=== PATIENT | female | born 1960 | race Caucasian/White ===

== ENCOUNTER 2022-09-11 08:41 | Outpatient (CLI) | payer OTHER, SELFPAY ==
--- NOTE | ~2022-09-11 | MM_ITS ---
EXAMINATION: MM screening radha BI w rosey HISTORY: Screening TECHNIQUE: Craniocaudal and mediolateral oblique 3-D tomosynthesis images were obtained and synthetic 2-D images were generated. CAD analysis was submitted and interpreted. COMPARISON: Comparison to multiple prior studies sequentially, with oldest reviewed study dated 08/24. BREAST PARENCHYMAL COMPOSITION: The breasts are heterogeneously dense, which may obscure small masses . FINDINGS: There is no evidence of suspicious mass, calcification, or architectural distortion to sugg est malignancy in either breast. There has been no suspicious interval change. IMPRESSION: 1. No mammographic evidence of malignancy. 2. Recommend routine screening mammography in one year. BI-RADS Category 1: Negative Reviewed, dictated and finalized at location A. 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
== END 2022-09-11 08:42 | disposition home or self-care (01) ==
PROVIDERS: PCP Internal Medicine; Visit Provider Nurse Practitioner
DX: Z12.31 Encounter for screening mammogram for malignant neoplasm of breast (principal)
CPT/HCPCS: 77063; 77067

== ENCOUNTER 2023-09-29 07:50 | Inpatient (IN) | payer OTHER, SELFPAY ==
[2023-09-29] VITALS (11 sets, daily range): BP systolic 94–135; BP diastolic 58–85; PULSE 93–116; RESP 16–24; TEMP 36.2–36.8; O2SAT 95–100
--- NOTE | ~2023-09-29 | XR_ITS ---
EXAMINATION: XR chest 2V DATE: 09/29/2023 08:38 INDICATION: Right-sided chest pain. Cough. TECHNIQUE: Frontal and lateral views of the chest were obtained. COMPARISON: Chest 2 views 07/06/2010 FINDINGS: A calcified left lung nodule and calcified left hilar and mediastinal lymph nodes are consi stent with old granulomatous disease. There are airspace opacities in right mid and upper lung zones. There are mild airspace opacities in the lower lung zones. There is a small right pleural effusion. No pneumothorax. The heart size is normal. There are surgical clips in the abdomen. IMPRESSION: 1. Airspace opacities in right lung and left lower lung zone, consistent with pneumonia. 2. Small right pleural effusion. Reviewed, dictated and finalized at location A. K PITCHER IMPRESSION: 1. Airspace opacities in right lung and left lower lung zone, consistent with p neumonia. 2. Small right pleural effusion.
--- NOTE | 2023-09-29 07:51 | ECG_ITS ---
Measurements Intervals [place] Rate: 110 P: 41 WV: 149 QRS: 6 QRSD: 97 T: 64 QT: 327 QTc: 444 Interpretive Statements SINUS TACHYCARDIA VOLTAGE CRITERIA FOR LVH ABNORMAL ECG NO PREVIOUS ECG AVAILABLE FOR COMPARISON Electronically Signed On 09-29-2023 8:25:00 VALUE ANALYSIS COORDINATOR by Jeronimo Lewis D.O.
[2023-09-29 09:01] LABS: Basophils Absolute Auto 0.2 K/mm3 (0.0-0.1); Basophils Percent Auto 1.3 % (0.2-1.2); Eosinophils Absolute Auto 0.2 K/mm3 (0-0.3); Eosinophils Percent Auto 1.3 % (0-4.4); Hematocrit 42.2 % (37.0-47.0); Hemoglobin 13.5 g/dL (12.0-15.0); Immature Granulocyte Absolute 0.56 K/mm3 (0.00-0.031); Immature Granulocyte Percent A 4.9 % (0-0.5); Lymphocytes Absolute Auto 1.97 K/mm3 (0.9-3.2); Lymphocytes Percent Auto 17.3 % (18.3-44.2); Mean Corpuscular Hemoglobin 27.3 pg (26-34); Mean Corpuscular Volume 85.3 fl (80-100); Mean Platelet Volume 9.8 fl (7.4-10.4); Monocytes Absolute Auto 0.8 K/mm3 (0.1-0.6); Monocytes Percent Auto 7.4 % (2.6-8.5); Neutrophils Absolute Auto 7.7 K/mm3 (1.3-6.7); Neutrophils Percent Auto 67.8 % (45.5-73.1); Platelet Count Result 415 k/mm3 (150-375); Red Blood Count 4.95 M/mm3 (4.2-5.4); Red Cell Distribution Width 14.1 % (11.5-14.5); White Blood Count 11.4 K/mm3 (4.5-10.0)
[2023-09-29 09:14] LABS: Prothrombin Time 13.1 Seconds (11.1-14.7)
[2023-09-29 09:15] LABS: Partial Thromboplastin Time 31.7 SECONDS (22.3-36.8)
[2023-09-29 09:16] LABS: Alanine Aminotransferase 36 U/L (6-35); Albumin Level 4.3 g/dL (3.5-5.1); Alkaline Phosphatase 140 U/L (38-126); Anion Gap 13 mmol/L (8-16); Aspartate Amino Transferase 43 U/L (14-36); Bilirubin,Total 0.9 mg/dL (0.2-1.3); Blood Urea Nitrogen 22 mg/dL (7-17); Calcium 11.1 mg/dL (8.4-10.2); Carbon Dioxide 26 mmol/L (22-30); Chloride 93 mmol/L (98-107); Estimated CRCL calculation 50 ml/min; Estimated Glomerular Filt Rate > 60; Glucose 107 mg/dL (65-110); Lipase 141 U/L (23-300); Potassium 4.3 mmol/L (3.4-5.0); Sodium 132 mmol/L (137-145)
[2023-09-29 09:23] LABS: Influenza A QL RT-PCR Negative (Negative); Influenza B QL RT-PCR Negative (Negative); RSV RNA, RT-PCR Negative (Negative); SARS-CoV-2 RNA PCR Negative (Negative)
[2023-09-29 09:32] LABS: Troponin I < 0.012 ng/mL (0.000-0.034)
--- NOTE | 2023-09-29 09:54 | ED.GENADULT ---
HPI - General Adult General Chief complaint: Chest Pain <Elif Mancilla GHOST WRITER - Last Filed: 09/29/23 09:58> Stated complaint: R side chest pain <Elif Mancilla GHOST WRITER - Last Filed: 09/29/23 09:58> Time Seen by Provider: 09/29/23 14:54 <Elif Mancilla GHOST WRITER - Last Filed: 09/29/23 09:58> History of Present Illness HPI narrative: Kim Rosen is a 63 y/o female who presents with reports of having a productive cough for about 1 week with right sided chest pain. She states that she was on antibiotics for 3-4 days but states it didn't make her feel any better. <Elif Mancilla GHOST WRITER - Last Filed: 09/29/23 09:58> Kim Rosen is a 63 y/o female who presents with reports of having a productive cough for about 1 week with right sided chest pain. She states that she was on antibiotics for 3 days but states it didn't make her feel any better And she discontinue the antibiotics. No loss consciousness. Has tightness on the right side. No radiation. No runny nose or sore throat. <Quique Bang MD - Last Filed: 09/29/23 18:49> Related Data Home medications: Home Medications Medication Instructions Recorded Confirmed calcium carbonate 500 mg calcium 500 mg PO DAILY 11/26/19 07/03/22 (1,250 mg) tablet (Calcium 500) cholecalciferol (vitamin D3) 25 1,000 unit PO DAILY 11/26/19 07/03/22 mcg (1,000 unit) capsule <Elif Mancilla GHOST WRITER - Last Filed: 09/29/23 09:58> Allergies/adverse reactions: Allergies Allergy/AdvReac Type Severity Reaction Status Date / Time metoclopramide Allergy Mild Other Verified 09/29/23 14:45 Penicillins Allergy Unknown Unknown Verified 09/29/23 14:45 <Elif Mancilla GHOST WRITER - Last Filed: 09/29/23 09:58> Review of Systems Review of Systems: All systems reviewed & are unremarkable except as noted in HPI and below <Quique Bang MD - Last Filed: 09/29/23 18:49> Constitutional: Constitutional: Denies chills, Reports fatigue and Denies fever(s) <Quique Bang MD - Last Filed: 09/29/23 18:49> ENT: Reports system reviewed and no additional complaints, except as documented <Quique Bang MD - Last Filed: 09/29/23 18:49> Cardiovascular: Cardiovascular: Reports chest pain, Denies rapid heart rate and Denies radiating jaw, neck or arm pain <Quique Bang MD - Last Filed: 09/29/23 18:49> Respiratory: Respiratory: Reports chest congestion, Reports cough, Reports dyspnea and Denies wheezing <Quique Bang MD - Last Filed: 09/29/23 18:49> Gastrointestinal: Gastrointestinal: Reports no additional gastrointestinal complaints <Quique Bang MD - Last Filed: 09/29/23 18:49> Musculoskeletal: Musculoskeletal: Reports no additional musculoskeletal complaints <Quique Bang MD - Last Filed: 09/29/23 18:49> [facility] Past Medical History Medical History: Medical History (Updated 09/29/23 @ 17:44 by Quique Bang MD) Hypercalcemia Iron deficiency anemia Menieres disease Osteopenia Vitamin B12 deficiency <Elif Mancilla GHOST WRITER - Last Filed: 09/29/23 09:58> Surgical History Surgical History: Surgical History H/O: hysterectomy History of gastric bypass <Elif Mancilla GHOST WRITER - Last Filed: 09/29/23 09:58> Family History Family History: Family History Father Acute myocardial infarction Sibling Heart disease Father Myocardial infarction Mother Breast cancer Sibling Hypertension CHF (congestive heart failure) Breast cancer Sibling Breast cancer <Elif Mancilla GHOST WRITER - Last Filed: 09/29/23 09:58> Social History Social History: Social History Social History: caffeine-soda, 2 cups daily Smoking status: Never smoker Alcohol intake: never <Elif Mancilla, GHOST WRITER - Last Filed: 09/29/23 09:58> Exam Narrative: GENERAL: Well-appearing, well-nour
[2023-09-29 14:11] LABS: Troponin I < 0.012 ng/mL (0.000-0.034)
--- NOTE | 2023-09-29 14:47 | ECG_ITS ---
Measurements Intervals [place] Rate: 111 P: 25 CT: 149 QRS: -14 QRSD: 101 T: 80 QT: 319 QTc: 434 Interpretive Statements SINUS TACHYCARDIA LEFT VENTRICULAR HYPERTROPHY WITH ST-T CHANGE BORDERLINE R WAVE PROGRESSION, ANTERIOR LEADS INFERIOR INFARCT, AGE INDETERMINATE ABNORMAL ECG COMPARED TO ECG 09/29/2023 08:01:10 NO SIGNIFICANT CHANGES Electronically Signed On 09-29-2023 15:02:15 MEDICAL ASSISTANT DERMATOLOGY by Jeronimo Lewis D.O.
[2023-09-29] MEDS: SODIUM CHLORIDE 0.9% IV 1,000 ML 999 ML IV CONT (16:42)
[2023-09-29] MEDS: ACETAMINOPHEN 325 MG TABLET 650 MG PO (18:23)
[2023-09-29] MEDS: MORPHINE SULFATE (*CRX) 2 MG/ML INJ IV PUSH (18:25)
[2023-09-29] MEDS: AZITHROMYCIN 500 MG/NS 250 ML 500 MG/250 ML BAG 250 MG IVPB (18:57)
--- NOTE | 2023-09-29 19:15 | PC.NURSE ---
Report given to Mariluz HERNÁNDEZ, all questions answered
[2023-09-29] MEDS: HYDROcodone/acetaminophen (*CRX) 5-325 MG TABLET 1 TAB PO (19:56)
[2023-09-29] MEDS: ONDANSETRON INJ 4 MG/2 ML VIAL IV PUSH (19:56)
[2023-09-29] MEDS: SODIUM CHLORIDE 0.9% IV 1,000 ML 125 ML IV CONT (19:57)
--- NOTE | 2023-09-29 20:50 | ADMGEN ---
This patient, Kim Rosen, was admitted to Medical Room 341-01. Patient/family oriented to hospital policies and general routines including ID bracelet, bed and alarms, visiting hours, pain management, procedures, bathroom and other care routines, personal items, smoking policy, room service/diet, and visiting hours. Information on how to activate the Rapid Response Team has been discussed. Patient/Family are encouraged to report perceived risks to care and to ask questions if they do not understand what they are told or what they should do.
--- NOTE | 2023-09-29 22:22 | PM.IMHP ---
H&P: HPI History of Present Illness Date/Time: 09/29/23 21:45 Chief Complaint: Cough and chest pain. Narrative: This is a pleasant 63-year-old female with Meniere's disease who presented to the emergency department via private vehicle from home for evaluation of cough and chest pain. The patient provides the following history. She is concerned she may have pneumonia. She has not been feeling well for almost a week with a cough for which she was started on antibiotics 3 days ago however she stopped taking them a she is not feeling better. She continues to have a persistent cough and now has anterior right-sided pleuritic chest pain described as a throbbing or tight sensation though occasionally ?jabbing. Appetite has been okay. She denies fever, chills, sweats, sore throat, exertional chest pain, shortness a breath, edema, calf pain, syncope, near syncope, nausea, vomiting, and diarrhea. She also denies sick contacts. On arrival to triage she was afebrile with stable blood pressures. She is tachycardic in the upper 90s to low 100s. Labs were significant for WBC count of 11.4, sodium 132, chloride 93, BUN 22, calcium 11.1, troponin less than 0.012. She tested negative for influenza, RSV, and COVID. Chest x-ray shows airspace opacities in the right lung and left lower lung zone consistent with pneumonia. She received a dose of azithromycin and ceftriaxone and she is being admitted in this setting for further treatment. Review of Systems Review of Systems: Twelve systems were reviewed and are negative except for as per HPI. [facility] Past Medical History Medical History Hypercalcemia Iron deficiency anemia Menieres disease Osteopenia Vitamin B12 deficiency Surgical History Surgical History History of gastric bypass History of hysterectomy Family History Family History Father Acute myocardial infarction Sibling Heart disease Father Myocardial infarction Mother Breast cancer Sibling Hypertension CHF (congestive heart failure) Breast cancer Sibling Breast cancer Social History Social History Social History: Surrogate medical decision maker: Yrn Rosen, sibling. Code status: Full code. Smoking status: Never smoker Alcohol intake: never Substance use: never Do You Feel Safe in your Home?: Yes Lack of Transportation: No Lack of Food: Never True Current Housing: I Have Housing Concerned About Future Housing: No Difficulty Paying Gas/Electric Bills: No Difficulty Paying for Meds: No Currently Unemployed: No Education: Master's Degree or Higher Difficulty w/ Childcare or Family Care: No Spiritual care concerns: No Meds Home Medications and Allergies Home Medications Medication Instructions Recorded Confirmed Type calcium carbonate 500 mg calcium 500 mg PO DAILY 11/26/19 09/29/23 History (1,250 mg) tablet (Calcium 500) cholecalciferol (vitamin D3) 25 1,000 unit PO DAILY 11/26/19 09/29/23 History mcg (1,000 unit) capsule famotidine 40 mg tablet 40 mg PO DAILY #30 tabs 12/07/20 09/29/23 Rx pen needle, diabetic 32 gauge x #50 ea 08/28/22 09/29/23 Rx 1/4 (BD Ultra-Fine Micro Pen Needle) cyanocobalamin (vitamin B-12) 100 mcg (0.1 mL) subcut MONTHLY #1 02/04/23 09/29/23 Rx 1,000 mcg/mL injection kit ea syringe with needle 3 mL 23 x 1 #50 ea 02/04/23 09/29/23 Rx (BD Eclipse Luer-Maritza) hyoscyamine sulfate 0.125 mg tablet 0.125 mg PO TID #270 tabs 03/27/23 09/29/23 Rx benzonatate 100 mg capsule 100 mg PO TID PRN Cough 09/29/23 09/29/23 History calcitriol 0.5 mcg capsule 0.5 mcg PO BID 09/29/23 09/29/23 History triamterene 37.5 1 cap PO DAILY 09/29/23 09/29/23 History mg-hydrochlorothiazide 25 mg capsule Allergies Allergy/A
[2023-09-30] MEDS: HYDROcodone/acetaminophen (*CRX) 5-325 MG TABLET 1 TAB PO ×3 (02:08→11:59)
[2023-09-30] MEDS: SODIUM CHLORIDE 0.9% IV 1,000 ML 125 ML IV CONT (02:09)
[2023-09-30 03:00] VITALS: BMI 24.4
[2023-09-30 06:00] VITALS: BP 107/71; PULSE 96; RESP 16; TEMP 36.3; O2SAT 96
[2023-09-30 06:24] LABS: Alanine Aminotransferase 20 U/L (6-35); Alkaline Phosphatase 104 U/L (38-126); Anion Gap 6 mmol/L (8-16); Aspartate Amino Transferase 20 U/L (14-36); Bilirubin,Total 0.3 mg/dL (0.2-1.3); Blood Urea Nitrogen 19 mg/dL (7-17); Calcium 8.6 mg/dL (8.4-10.2); Carbon Dioxide 24 mmol/L (22-30); Chloride 103 mmol/L (98-107); Estimated CRCL calculation 56 ml/min; Estimated Glomerular Filt Rate > 60; Glucose 94 mg/dL (65-110); Magnesium 1.6 mg/dL (1.6-2.3); Sodium 133 mmol/L (137-145)
[2023-09-30 06:30] LABS: Hematocrit 32.6 % (37.0-47.0); Mean Corpuscular HGB Conc 30.7 g/dl (32-36); Mean Corpuscular Hemoglobin 27.2 pg (26-34); Mean Corpuscular Volume 88.8 fl (80-100); Mean Platelet Volume 10.1 fl (7.4-10.4); Platelet Count Result 332 k/mm3 (150-375); Red Blood Count 3.67 M/mm3 (4.2-5.4); Red Cell Distribution Width 14.3 % (11.5-14.5); White Blood Count 7.4 K/mm3 (4.5-10.0)
--- NOTE | 2023-09-30 08:30 | P.DS_ITS ---
DS: Admitting Diagnosis Discharge Date 09/30/2023 Admitting Diagnosis CAP DS: Discharge Diagnosis Discharge Diagnosis (1) Sepsis: Qualifiers: Sepsis acute organ dysfunction status: without acute organ dysfunction Sepsis type: sepsis due to unspecified organism Qualified Code(s): A41.9 - Sepsis, unspecified organism Code(s): A41.9 - Sepsis, unspecified organism Status: Acute Assessment and Plan: * Meets SIRS with tachycardia, tachypnea, leukocytosis, hypotension and source of infection * Unfortunately no blood cultures were obtained * Source of infection CAP * Sputum culture ordered * Hypotension noted most likely related to hypovolemia * Vital signs more stable * Labs stable * Change IV azithromycin and ceftriaxone, to PO doxy and cefdinir (2) Pneumonia: Qualifiers: Laterality: bilateral Lung location: lower lobe of lung Pneumonia type: due to unspecified organism Qualified Code(s): J18.9 - Pneumonia, unspecified organism Code(s): J18.9 - Pneumonia, unspecified organism Status: Acute Assessment and Plan: * Chest x-ray shows pneumonia in the right lung and left lower lung zones. * Continue azithromycin 500 mg and ceftriaxone 1 g daily. * Attempt sputum for culture * Legionella and pneumococcal antigens pending * Cough is better * Change outpatient medications to doxy and cefdinir at home * No supplemental oxygen * Labs stable (3) Hypercalcemia: Code(s): E83.52 - Hypercalcemia Status: Acute Assessment and Plan: * Restart calcitriol, coli calciferol, and triamterene-hydrochlorothiazide. * Baseline Calcium around 10 * Hydration provided overnight * Repeat calcium levels better at 8.6 * Most likely related to hypovolemia * Continue home medication * BMP in one week * Follow up with PCP for further medication adjustments and instructions (4) Menieres disease: Qualifiers: Laterality: unspecified laterality Qualified Code(s): H81.09 - Meniere's disease, unspecified ear Code(s): H81.09 - Meniere's disease, unspecified ear Status: Acute Assessment and Plan: * Hold triamterene-hydrochlorothiazide given hypercalcemia upon arrival * Restart home medications * Trend BP * BMP in one week DS: Summary Hospital Course Hospital Course: Patient is a 63-year-old female past medical history of Meniere's disease in the ED with complaints cough and chest pain. Chest x-ray did show that bilateral lower lobe pneumonia. Patient was started on a azithromycin outpatient which has been converted to IV with the addition of ceftriaxone and patient a blood cells elevated at time of arrival. Patient also did have tachypnea, tachycardia and slight hypotension. Patient was given IV fluids over with the notable hypercalcemia of 11.1. Currently calcium is better at 8.6. Baseline appears to be around 10. Currently WBCs is better at 7.4. Labs are stable. Patient did state that she was feel little better however she still did have pain when she gets up and moves around however does seem better as well. Currently she denies any chest pain, shortness a breath, nausea, vomiting, diarrhea or constipation. The patient up and walk around patient was able to get to the bathroom back to bed without any difficulties. Patient does live at home alone. For discharge for labs and vital signs and will need to follow up with her primary care provider in 1 week. [place]
--- NOTE | 2023-09-30 08:30 | PM.DS ---
DS: Admitting Diagnosis Discharge Date 09/30/2023 Admitting Diagnosis CAP DS: Discharge Diagnosis Discharge Diagnosis (1) Sepsis: Qualifiers: Sepsis acute organ dysfunction status: without acute organ dysfunction Sepsis type: sepsis due to unspecified organism Qualified Code(s): A41.9 - Sepsis, unspecified organism Code(s): A41.9 - Sepsis, unspecified organism Status: Acute Assessment and Plan: Meets SIRS with tachycardia, tachypnea, leukocytosis, hypotension and source of infection Unfortunately no blood cultures were obtained Source of infection CAP Sputum culture ordered Hypotension noted most likely related to hypovolemia Vital signs more stable Labs stable Change IV azithromycin and ceftriaxone, to PO doxy and cefdinir (2) Pneumonia: Qualifiers: Laterality: bilateral Lung location: lower lobe of lung Pneumonia type: due to unspecified organism Qualified Code(s): J18.9 - Pneumonia, unspecified organism Code(s): J18.9 - Pneumonia, unspecified organism Status: Acute Assessment and Plan: Chest x-ray shows pneumonia in the right lung and left lower lung zones. Continue azithromycin 500 mg and ceftriaxone 1 g daily. Attempt sputum for culture Legionella and pneumococcal antigens pending Cough is better Change outpatient medications to doxy and cefdinir at home No supplemental oxygen Labs stable (3) Hypercalcemia: Code(s): E83.52 - Hypercalcemia Status: Acute Assessment and Plan: Restart calcitriol, coli calciferol, and triamterene-hydrochlorothiazide. Baseline Calcium around 10 Hydration provided overnight Repeat calcium levels better at 8.6 Most likely related to hypovolemia Continue home medication BMP in one week Follow up with PCP for further medication adjustments and instructions (4) Menieres disease: Qualifiers: Laterality: unspecified laterality Qualified Code(s): H81.09 - Meniere's disease, unspecified ear Code(s): H81.09 - Meniere's disease, unspecified ear Status: Acute Assessment and Plan: Hold triamterene-hydrochlorothiazide given hypercalcemia upon arrival Restart home medications Trend BP BMP in one week DS: Summary Hospital Course Hospital Course: Patient is a 63-year-old female past medical history of Meniere's disease in the ED with complaints cough and chest pain. Chest x-ray did show that bilateral lower lobe pneumonia. Patient was started on a azithromycin outpatient which has been converted to IV with the addition of ceftriaxone and patient a blood cells elevated at time of arrival. Patient also did have tachypnea, tachycardia and slight hypotension. Patient was given IV fluids over with the notable hypercalcemia of 11.1. Currently calcium is better at 8.6. Baseline appears to be around 10. Currently WBCs is better at 7.4. Labs are stable. Patient did state that she was feel little better however she still did have pain when she gets up and moves around however does seem better as well. Currently she denies any chest pain, shortness a breath, nausea, vomiting, diarrhea or constipation. The patient up and walk around patient was able to get to the bathroom back to bed without any difficulties. Patient does live at home alone. For discharge for labs and vital signs and will need to follow up with her primary care provider in 1 week. Patient verbalized understanding. Status at Discharge Functional status at discharge: uses cane/walker Overall status at discharge: patient is progressing back to baseline Time Spent with Patient Time attestation: Total time spent providing and/or coordinating discharge services: 46 minutes Time spent: Greater than 30 minutes Specific discharge activities: Diagnostic testing, chart review, developing a treatment plan, education, care coordination documentation
[2023-09-30] MEDS: CHOLECALCIFEROL 1,000 UNITS TABLET 1000 UNITS PO (10:15)
[2023-09-30] MEDS: calcitrioL 0.25 MCG CAPSULE 0.5 MCG PO (10:15)
[2023-09-30] MEDS: MAGNESIUM SULF 4 GM/WATER100ML 4 GM/100 ML BAG IVPB (10:15)
[2023-09-30] MEDS: FAMOTIDINE 20 MG TABLET 40 MG PO (10:15)
[2023-09-30] MEDS: CALCIUM CARBONATE (OSCAL) 500 MG TABLET PO (10:15)
[2023-09-30] MEDS: TRIAMTERENE 37.5 MG/HCTZ 25 MG (MAXZIDE) TABLET 1 TAB PO (10:16)
[2023-09-30] MEDS: HYOSCYAMINE SULFATE 0.125 MG TABLET PO (10:20)
[2023-09-30] MEDS: ENOXAPARIN 40 MG/0.4 ML SYRINGE SUB-Q (10:26)
[2023-09-30] MEDS: SODIUM CHLORIDE 0.9% IV 500 ML 999 ML IV CONT (11:56)
[2023-09-30] MEDS: ONDANSETRON INJ 4 MG/2 ML VIAL IV PUSH (11:59)
[2023-10-03 14:38] LABS: Mycoplasma IgM Antibody Titer 47 U/mL (<770)
[2023-10-03 15:21] LABS: Pneumococcal Antigen Urine Not Detected (Not Detected)
[2023-10-04 07:13] LABS: Legionella pneumophila Ag Ur Not Detected (Not Detected)
== END 2023-09-30 14:35 | disposition home or self-care (01) | DRG 195 ==
LOC: ANHED 17:49 → ANH3MED 19:46
PROVIDERS: Physician Assistant; Admitting Provider Internal Medicine; Emergency Provider Emergency Medicine; PCP Internal Medicine; Visit Provider Nurse Practitioner
DX: J18.9 Pneumonia, unspecified organism; D50.9 Iron deficiency anemia, unspecified; E83.52 Hypercalcemia; E53.8 Deficiency of other specified B group vitamins; H81.09 Meniere's disease, unspecified ear; I95.9 Hypotension, unspecified; M85.80 Other specified disorders of bone density and structure, unspecified site; Z98.84 Bariatric surgery status; Z88.0 Allergy status to penicillin; Z20.822 Contact with and (suspected) exposure to COVID-19
CPT/HCPCS: 36415; 71046; 80053; 83690; 83735; 84484; 85025; 85027; 85610; 85730; 86738; 87449; 87637; 87899; 93005; 96361; 96365; 96367; 96375; 99285; A9270; G0378; J0456; J0696; J1650; J2270; J2405; J3475; J7030; J7040

== ENCOUNTER 2023-12-10 10:01 | Outpatient (CLI) | payer OTHER, SELFPAY ==
--- NOTE | 2023-12-15 16:35 | WPDHOLTEREM ---
Holter/Event Monitor Holter/Event Monitor Date of procedure: 12/10/23 Holter/Event Procedure: 48 Hr Holter Monitor Indications: palpitations Conclusion: 1. 48 hour holter monitor on 12/10/23. 2. Predominant rhythm is sinus rhythm. HR range 54-164 bpm; average HR 90 bpm. HR at 164 bpm was at 07:45. 3. There are 115 premature supraventricular complexes and 2 supraventricular couplets. There are 4 episodes of supraventricular tachycardia/atrial tachycardia with fastest HR at 164 bpm. 4. There are 858 premature ventricular complexes, 23 ventricular couplets, and 1 ventricular triplet. There is 1 episode of ventricular tachycardia at 120 bpm lasting 42 beats at 18:15. 5. No sinoatrial or atrioventricular blocks. No significant pauses greater than 2 seconds. 6. Patient reports symptoms of rapid heart rate which demonstrate sinus rhythm, HR range 66-108 bpm.
== END 2023-12-10 10:02 | disposition home or self-care (01) ==
LOC: ANHCARD 10:03
PROVIDERS: PCP Internal Medicine; Visit Provider Nurse Practitioner
DX: R00.2 Palpitations (principal)
CPT/HCPCS: 93225; 93226

== ENCOUNTER 2023-12-30 15:14 | Outpatient (CLI) | payer OTHER, SELFPAY ==
--- NOTE | 2023-12-30 15:21 | ECHO_ITS ---
Patient Info Name: Kim Rosen Age: 63 years : 1960 Gender: Female Ht: 65 in Wt: 150 lbs BSA: 1.78 m2 HR: 96 bpm BP: 120 / 77 mmHg Heart Rhythm: Sinus Rhythm Technical Quality: Good Exam Date: 12/30/2023 3:32 PM Exam Location: Echo Lab Patient Status: Outpatient Admit Date: 12/30/2023 Staff Ordering Physician: Pilar Tejada Terminologist: Sonja Farley RDCS Attending Provider: Pilar Tejada Referring Physician: Terrell NICOLE; Exam Type: CA echo dop color flow w con Study Info Indications R94.31 - Abnormal electrocardiogram ECG EKG Complete two-dimensional, color flow and Doppler transthoracic echocardiogram is performed with contrast to opacify the left ventricle and to improve the deliniation of the left ventricle endocardial borders. Contrast/Agitated Saline Contrast/Ag. Saline: Definity Amount: 2.00 ml Existing IV Access: No New IV Access: Left Site Condition: IV removed Summary 1. Definity contrast administered improved wall motion interpretation. 2. Left ventricular systolic function is severely globally reduced, estimated at 25-30%. 3. Left ventricular chamber dimension is severely enlarged. 4. The left ventricular diastolic function is abnormal. 5. E/e' 31 is significantly elevated. 6. Left atrial chamber dimension is severely enlarged. 7. There is mild aortic valve sclerosis. 8. There is trace aortic valve regurgitation. 9. The mitral valve has mildly calcified annulus. 10. Mitral valve has mildly thickened leaflets. 11. There is mild to moderate mitral valve regurgitation. 12. There is trace tricuspid valve regurgitation. 13. No pulmonary hypertension, estimated pulmonary arterial systolic pressure is 38 mmHg. 14. There is trivial pericardial effusion. Left Ventricle E/e' 31 is significantly elevated. Definity contrast administered improved wall motion interpretation. Left ventricular systolic function is severely globally reduced, estimated at 25-30%. Left ventricular chamber dimension is severely enlarged. The left ventricular diastolic function is abnormal. Right Ventricle Right ventricular systolic function is normal and with normal TAPSE 1.8 cm. Right ventricular chamber dimension is normal. Left Atria Left atrial chamber dimension is severely enlarged. Right Atria Right atrial chamber dimension is normal. Aortic Valve The aortic valve is trileaflet. There is mild aortic valve sclerosis. There is no aortic valve stenosis. There is trace aortic valve regurgitation. Pulmonic Valve There is no pulmonic regurgitation. Mitral Valve The mitral valve has mildly calcified annulus. Mitral valve has mildly thickened leaflets. There is no mitral valve stenosis. There is mild to moderate mitral valve regurgitation. Tricuspid Valve There is trace tricuspid valve regurgitation. No pulmonary hypertension, estimated pulmonary arterial systolic pressure is 38 mmHg. Pericardium/Pleural There is trivial pericardial effusion. Inferior Vena Cava Normal inferior vena cava with >50% collapse upon inspiration consistent with normal right atrial pressure, 5 mmHg. Aorta The aortic root size at the sinus of Valsalva is normal. Left Ventricular Outflow Tract Name Value Normal LVOT 2D LVOT Diameter
[2023-12-30] MEDS: PERFLUTREN LIPID MICROSPHERES 1.5 ML VIAL DILUTED TO 10 ML TOTAL VOLUME IV PUSH (16:20)
--- NOTE | 2023-12-30 16:53 | IVDEFINITY ---
Prior to administration of IV Definity the patient was educated on the risks and benefits of the imaging enhancing agent including potential adverse side effects. The patient verbalized understanding. Allergies were verified. No exclusion criteria were identified and at least one of the following inclusion criteria were met: 1) physician request, 2) patient technically difficult to image (per the [place] [employer] guidelines of two or more segments not discernable within the apical view), or 3) questionable left ventricular function. ?
== END 2023-12-30 15:15 | disposition home or self-care (01) ==
PROVIDERS: PCP Internal Medicine; Visit Provider Clinical Nurse Specialist
DX: R93.1 Abnormal findings on diagnostic imaging of heart and coronary circulation (principal); R94.31 Abnormal electrocardiogram [ECG] [EKG]; I35.8 Other nonrheumatic aortic valve disorders; I35.1 Nonrheumatic aortic (valve) insufficiency; I34.81 Nonrheumatic mitral (valve) annulus calcification; I34.0 Nonrheumatic mitral (valve) insufficiency; I07.1 Rheumatic tricuspid insufficiency; I31.39 Other pericardial effusion (noninflammatory)
CPT/HCPCS: C8929; Q9957

== ENCOUNTER 2024-01-26 00:12 | Day surgery (SDC) | payer OTHER, SELFPAY ==
[2024-01-23 12:36] VITALS: BMI 24.9
[2024-01-26] VITALS (17 sets, daily range): BP systolic 91–123; BP diastolic 53–74; PULSE 65–96; RESP 15–18; TEMP 36.4; O2SAT 96–100; BMI 24.2
[2024-01-26 07:41] LABS: Basophils Percent Auto 0.7 % (0.2-1.2); Eosinophils Absolute Auto 0.1 K/mm3 (0-0.3); Eosinophils Percent Auto 1.7 % (0-4.4); Hematocrit 41.6 % (37.0-47.0); Hemoglobin 12.9 g/dL (12.0-15.0); Immature Granulocyte Absolute 0.02 K/mm3 (0.00-0.031); Immature Granulocyte Percent A 0.3 % (0-0.5); Lymphocytes Absolute Auto 1.55 K/mm3 (0.9-3.2); Mean Corpuscular Hemoglobin 26.1 pg (26-34); Mean Platelet Volume 10.5 fl (7.4-10.4); Monocytes Absolute Auto 0.6 K/mm3 (0.1-0.6); Monocytes Percent Auto 11.1 % (2.6-8.5); Neutrophils Absolute Auto 3.4 K/mm3 (1.3-6.7); Neutrophils Percent Auto 59.2 % (45.5-73.1); Platelet Count Result 284 k/mm3 (150-375); Red Blood Count 4.95 M/mm3 (4.2-5.4); Red Cell Distribution Width 14.9 % (11.5-14.5); White Blood Count 5.8 K/mm3 (4.5-10.0)
[2024-01-26 07:54] LABS: Anion Gap 5 mmol/L (4-12); Blood Urea Nitrogen 28 mg/dL (7-17); Calcium 9.9 mg/dL (8.4-10.2); Carbon Dioxide 29 mmol/L (22-30); Chloride 100 mmol/L (98-107); Estimated CRCL calculation 45 ml/min; Estimated Glomerular Filt Rate 56; Glucose 83 mg/dL (65-110); Sodium 134 mmol/L (137-145)
--- NOTE | 2024-01-26 08:52 | WPDMODSED ---
Moderate Sedation Note-Pt Data Patient Data Diagnosis: newly diagnosed cardiomyopathy Present Complaint: no complaints this morning Procedure to be performed/Plan: left heart catheterization Allergies Allergy/AdvReac Type Severity Reaction Status Date / Time Penicillins Allergy Unknown Unknown Verified 01/26/24 07:22 metoclopramide AdvReac Mild Nausea and Verified 01/26/24 07:22 Vomiting Home Medications Medication Instructions Recorded Confirmed Type calcium carbonate (Calcium 500) 500 mg PO DAILY 11/26/19 01/23/24 History cholecalciferol (vitamin D3) 25 1,000 unit PO DAILY 11/26/19 01/23/24 History mcg (1,000 unit) capsule famotidine 40 mg tablet 40 mg PO DAILY #30 tabs 12/07/20 01/23/24 Rx pen needle, diabetic 32 gauge x #50 ea 08/28/22 12/03/23 Rx 1/4 (BD Ultra-Fine Micro Pen Needle) syringe with needle 3 mL 23 x 1 #50 ea 02/04/23 12/03/23 Rx (BD Eclipse Luer-Maritza) calcitriol 0.5 mcg capsule 0.5 mcg PO BID 09/29/23 01/23/24 History prochlorperazine maleate 5 mg 5 mg PO Q8H PRN nausea and 10/01/23 01/23/24 Rx tablet (Compazine) vomiting #20 tabs hyoscyamine sulfate 0.125 mg tablet 0.125 mg PO TID #270 tabs 10/09/23 01/23/24 Rx triamterene 37.5 1 cap PO DAILY #90 caps 12/12/23 01/23/24 Rx mg-hydrochlorothiazide 25 mg capsule cyanocobalamin (vitamin B-12) 100 mcg (0.1 mL) subcut MONTHLY #1 01/23/24 Rx 1,000 mcg/mL injection kit sacubitril 24 mg-valsartan 26 mg 1 tablet PO BID #180 tabs 01/23/24 01/23/24 Rx tablet (Entresto) Current Medications: Active Medications Sodium Chloride (Normal Saline Iv) 500 mls @ 100 mls/hr IV CONT .Q5H ALEKS Sedation/Anesthesia: No previous sedation/anesthesia problems (including family history). [facility] Past Medical History Medical History (Updated 01/07/24 @ 09:56 by Wendy Hsu NP) Heart failure Hypercalcemia Iron deficiency anemia Menieres disease Osteopenia Vitamin B12 deficiency Surgical History Surgical History History of gastric bypass History of hysterectomy Family History Family History Father Acute myocardial infarction Sibling Heart disease Father Myocardial infarction Mother Breast cancer Sibling Hypertension CHF (congestive heart failure) Breast cancer Sibling Breast cancer Other Breast cancer Social History Social History Social History: Surrogate medical decision maker: Yrn Rosen, sibling. Code status: Full code. Smoking status: Never smoker Alcohol intake: never Substance use: never Do You Feel Safe in your Home?: Yes Lack of Transportation: No Lack of Food: Never True Current Housing: I Have Housing Concerned About Future Housing: Decline to Answer Difficulty Paying Gas/Electric Bills: Decline to Answer Difficulty Paying for Meds: Decline to Answer Currently Unemployed: Decline to Answer Education: Master's Degree or Higher Difficulty w/ Childcare or Family Care: Decline to Answer Living arrangements: alone Spiritual care concerns: No Mod Sed Physical Exam Physical Exam Pre Procedural Exam: Normal: Appearance, Throat, Airway, Lungs, Heart Rate, Heart Rhythm, Neuro Exam and Extremities and Variation: Heart Size Hours since solid foods: 12 Hours since liquid intake: 12 Mallampati Classification: class II Internal Medicine - PN: Obj Da Vital Signs Vital Signs: Vital Signs - 24 hr 01/26/24 07:24 Temperature 36.4 C Pulse Rate 65 Respiratory Rate 16 Blood Pressure 111/59 L Pulse Oximetry 100 Oxygen Delivery Room Air Meds/Results Medications: Active Medications Generic Name Dose Route Start Last Admin Trade Name Freq PRN Reason Stop Dose Admin Sodium Chloride 500 mls @ 100 mls/hr 01/26/24 07:00 Normal Saline Iv IV CONT .Q5H ALEKS Labs
--- NOTE | 2024-01-26 08:54 | P.PCNCC_ITS ---
Cardiac Cath Procedure Note Date of procedure:: 01/26/24 Performing physician:: Al Harvey MD Indication:: newly diagnosed cardiomyopathy Brief clinical history:: this is a 63-year-old patient who recently was found to have left ventricular systolic dysfunction and ventricular arrhythmias by outpatient echo and Holter monitoring. She has a family history of cardiomyopathy. Procedure Procedure performed:: Left heart catheterization Sedation/Medication given:: fentanyl 50 mg Versed 2 mg case start time 8:35 a.m. case end time 8:50 a.m. sedation provided by Edwige Brink RN, trained observer Access site:: right femoral artery Estimated blood loss:: 25 cc Procedure note:: patient was brought to the cardiac catheterization lab in the postabsorptive state where the right femoral triangle was prepped and draped in the usual fashion. Anesthesia was provided with 1% lidocaine infiltrated locally. Using the modified Seldinger technique a 5 Moldovan sheath was placed into the right femoral artery after this left heart catheterization was carried out. I used a 5 Moldovan angled pigtail catheter to document left-sided hemodynamics and to inject left ventriculogram in the 30 degree PATTERSON projection. Following this the left coronary artery was using a standard 5 Moldovan FL4 catheter the right coronary artery was engaged and injected using a standard 5 Moldovan catheter. The cineangiograms were then reviewed and the case was terminated. An angiogram was performed to the femoral artery through the sheath at after which sheath removal will be performed with direct manual compression. There were no apparent procedural complications and she left the labor relations specialist with no evidence of groin hematoma. Findings:: Hemodynamics: central aortic pressure 118/56 left ventricle 118/ 0 end- diastolic 14 there is no gradient across the aortic valve. Left ventricle: The LV is enlarged there is severe global systolic hypokinesia identified with a visually estimated ejection fraction of 25%. The left main coronary artery is nicely patent the left anterior descending is a medium down to at the apex the LAD and its branches are smooth and angiographically normal in appearance the circumflex is a medium caliber vessel giving rise to the marginal branches. The circumflex system is smooth and angiographically normal in appearance the right coronary artery is medium in caliber and is dominant to the posterior circulation. The RCA is smooth and angiographically normal in appearance Conclusion:: 1. right coronary dominant circulation with no angiographic abnormalities 2. moderate left ventricular enlargement with severe hypokinesia and low ejection fraction. Nonischemic cardiomyopathy Al Harvey MD FACC
== END 2024-01-26 14:36 | disposition home or self-care (01) ==
PROVIDERS: PCP Internal Medicine; Visit Provider Specialist
PROC: 4A023N7 Measurement of Cardiac Sampling and Pressure, Left Heart, Percutaneous Approach (ICD-10-PCS; CPT 93452; principal; 2024-01-26 08:30)
DX: I42.8 Other cardiomyopathies (principal); I47.20 Ventricular tachycardia, unspecified; I51.9 Heart disease, unspecified; E83.52 Hypercalcemia; D50.9 Iron deficiency anemia, unspecified; E53.8 Deficiency of other specified B group vitamins; Z98.890 Other specified postprocedural states; Z98.84 Bariatric surgery status; Z80.3 Family history of malignant neoplasm of breast; Z82.49 Family history of ischemic heart disease and other diseases of the circulatory system
CPT/HCPCS: 36415; 80048; 85025; 93458; C1887; C1894; J1644; J2250; J3010; J7040

== ENCOUNTER 2024-12-07 13:54 | Outpatient (CLI) | payer OTHER, SELFPAY ==
--- NOTE | ~2024-12-07 | MM_ITS ---
EXAMINATION: MM screening radha BI w rosey HISTORY: Screening TECHNIQUE: Craniocaudal and mediolateral oblique 3-D tomosynthesis images were obtained and synthetic 2-D images were generated. CAD analysis was submitted and interpreted. COMPARISON: Comparison to multiple prior studies sequentially, with oldest reviewed study dated 01/08. BREAST PARENCHYMAL COMPOSITION: Dense: The breasts are heterogeneously dense, which may obscure small masses FINDINGS: There is no evidence of suspicious mass, calcification, or architectural distortion to sugg est malignancy in either breast. There has been no suspicious interval change. IMPRESSION: 1. No mammographic evidence of malignancy. 2. Recommend routine screening mammography in one year. BI-RADS Category 1: Negative Reviewed, dictated and finalized at location B.
--- NOTE | ~2024-12-07 | DEXA_ITS ---
Bone Density Report Name: EDWIN MARION Age: 64 Sex: Female Ethnicity: White Date of : 1960 Indication: hyperparathyroidism; Referring Provider: Wendy Hsu Study: Bone densitometry was performed. Exam Date: December 07, 2024 Accession number: [id number] Bone Density: Region BMD T-score Z-score Classification AP Spine(L1-L4) 0.777 -2.5 -0.7 Osteoporosis Femoral Neck (Left) 0.764 -0.8 0.8 Normal Total Hip (Left) 0.838 -0.9 0.4 Normal Femoral Neck (Right) 0.756 -0.8 0.7 Normal Total Hip (Right) 0.830 -0.9 0.3 Normal Femoral Neck Mean 0.760 -0.8 0.7 Normal Total Hip Mean 0.834 -0.9 0.4 Normal World Health Organization criteria for BMD impression classify patients as: Normal (T-score at or above -1.0), Osteopenia (T-score between -1.0 and -2.5), or Osteoporosis (T-score at or below -2.5). 10-year Fracture Risk: FRAX not reported because: Some T-score for Spine Total or Hip Total or Femoral Neck at or below -2.5 Treated for osteoporosis Clinical Information Provided by Patient: Is being treated for osteoporosis Has used the following medications: Vitamin D, Calcium Has the following medical conditions: Hyperparathyroidism Patient maximum height was 65.5 Menopause Age: 49 No regular weight bearing exercise Drinks caffeinated beverages Onset of menses at age 12 Number of children 0 Impression: The patient has osteoporosis, based on the Total Spine T-score. Discussion: It is important to ask patients whether they are taking their medications and to encourage continued and appropriate compliance with their osteoporosis therapies to reduce fracture risk. It is also important to review their risk factors and encourage appropriate calcium and vitamin D intakes, exercise, fall prevention and other lifestyle measures. Follow-Up: Consider a repeat BMD and Vertebral Fracture Assessment (VFA) exam in 2 years or sooner if medically necessary, to reassess this patient's status. Reported by: CARINA on 12/07/2024 2:30:00 PM. Reviewed, dictated and finalized at location A.
--- OUTSIDE RECORDS SUMMARY | 2024-12-07 15:39 | XMS_ITS | Clinical Summary ---
Author Organization [facility] Address [address] [place] [address] Phone Care Team Providers Care Nursing Agency Manager Name Role Phone Mariano Sadler DO Primary Care Provider [phone] Elmira Burrell JACQUARD LOOM CARPET WEAVER Unavailable [phone] Allergies Active Allergy Reactions Criticality Noted Date Comments Metoclopramide Vomiting Low Penicillins Unknown Medications calcitRIOL (ROCALTROL) 0.5 mcg capsuleIndicati ons:Vitamin D Deficiency Take 1 capsule (0.5 mcg total) by mouth daily before breakfast 9 Active cyanocobalamin (Vitamin B-12) 1,000 mcg/mL injectionIndica tions:Preventio n of Vitamin B12 Deficiency Inject 1 mL (1,000 mcg total) under the skin every 30 (thirty) days 7 Active hyoscyamine (LEVSIN) 0.125 mg tabletIndicatio ns:Irritable Bowel Syndrome Take 1 tablet (0.125 mg total) by mouth daily before breakfast 7 Active BD LUER-GERARDO SYRINGE 3 mL 25 x 1 09/23 syringe 9 Active acetaminophen (TYLENOL) 500 mg tablet Take 1 tablet (500 mg total) by mouth every 6 (six) hours as needed for pain Active Entresto 24-26 mg tabletIndicatio ns:chronic heart failure Take 1 tablet by mouth 2 (two) times a day 4 Active carvediloL (COREG) 6.25 mg tablet Take 1 tablet (6.25 mg total) by mouth 2 (two) times a day with meals 60 tablet 11 4 03/09/20 25 Active Additional Information Patient taking differently:6.25 mg oral 2 times daily with meals (bkfst, dinner),Indications: hypertension, Informant: Self, Reported on 09/07/2024 triamterene-hyd roCHLOROthiazid e 37.5-25 mg per capsuleIndicati ons:htn Take 1 tablet/capsule by mouth daily before breakfast 4 Active multivitamin tabletIndicatio ns:Vitamin Deficiency Prevention Take 1 tablet by mouth daily before breakfast Active calcium carbonate-vitam in D3 1500 mg (600 mg elemental) -200 units per tabletIndicatio ns:Hypocalcemia Prevention,Prev ention of Vitamin D Deficiency Take 1 tablet by mouth daily before breakfast Active ascorbic acid (vitamin C) 1,000 mg tabletIndicatio ns:Vitamin C Deficiency Take 1 tablet (1,000 mg total) by mouth daily before breakfast Active famotidine (PEPCID) 40 mg tabletIndicatio ns:Heartburn Take 1 tablet (40 mg total) by mouth daily before breakfast Active Guaifen/Pseudoe phed/Acetaminop (TYLENOL SINUS SEVERE CONGEST ORAL) Take 1 tablet by mouth every 6 (six) hours as needed (sinus pain and pressure) Active Active Problems Problem Noted Date Diagnosed Date ICD (implantable cardioverter-defibrillator) in place 06/17/2024 Hyperkalemia 05/26/2024 Assessment & Plan (05/27/2024 10:37 AM CDT): Resolved. 5.2 on admission, likely hemolyzed. 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 [address] Jodee Huang in our office between September and January of 2006. Ferritin in 07/2005 - 4.3. He was given IV iron dextran in 09/2005. Ferritin - 234 in October 2005. Auditory vertigo 04/13/2012 Hypocalcemia 04/09/2012 Encounters Date Type Department Care Team Description 12/02/2024 Orders Only [facility] Oncology [facility] [facility] [address] [place] [address] David Harvey MD Iron deficiency anemia, unspecified iron deficiency anemia type (Primary Dx) 12/02/2024 Telephone [facility] [facility] Oncology [address] [place] [address] [address] [place] [address] Jennifer Jones, [facility] 12/02/2024 Orders Only [facility] Oncology [address] [place] [address] [address] [place] [address] David Harvey MD Iron deficiency anemia, unspecified iron deficiency anemia type (Primary Dx) 09/26/2024 Orders Only [facility] Cardiology [facility] [address] [place] [address] Manjeet Pina MD from Last 3 Months Immunizations Immunization Administration Dates Next Due Influenza, Quadrivalent, Spl it, Preservative Free, Intramuscular 07/07/2020 Influenza, Unspecified 08/20/2017,2015,08/09/2014,09/21 Maldonado (J&J) SARS-CoV-2 Vaccination 11/24/2020 ZOSTER LIVE 08/20/2017,07/31/2016 Surgical History Surgery Date Site/Laterality Comments GASTRIC BYPASS 09/22/2000 - 09/21/2001 gastric bypass HYSTERECTOMY 09/22/1995 - 09/21/1996 Hysterectomy PARATHYROIDECTOMY 11/21/2011 - 12/21/2011 Parathyroid Resection Sub-Total Parathyroidectomy - (Added by TW Conv) APPENDECTOMY 09/22/1962 - 09/21/1963 Appendectomy - (Added by TW Conv) COLONOSCOPY CHOLECYSTECTOMY 09/22/2000 - 09/21/2001 BLADDER SURGERY 02/20/2001 - 03/21/2001 InterStim Implanted-- Lead replacement 10/2001 Medical History Medical History Date Comments History of hyperparathyroidism 2011 s /p Sub-Total Parathyroidectomy History of Meniere's disease Men iere's Anemia GERD (gastroesophageal reflux disease) 2000 PONV (postoperative nausea and vomiting) h/o PONV with hysterectomy 1995 Ventricular tachycardia (HCC) NICM (nonischemic cardiomyopathy) (HCC) Family History Medical History Relation Name Comments Cardiomyopathy Brother 1 3 Stroke Brother 1 3 Early Brother 2 Amarjit Rosen Heart disease Brother 3 Mariano Rosen Heart attack Father Shreyas Gibbss Heart disease Father Shreyas Rosen Arthritis Mother Laquita Spears Cancer Mother Laquita Spears Heart disease Mother Laquita Spears Stroke Mother Laquita Spears Cancer Sister 2 Venita Danheiser Heart attack Sister 3 Ursula Mae Anesthesia problems Neg Hx Relation Name Status Comments Brother 1 3 Alive Brother 2 Amarjit Rosen Brother 3 Mariano Rosen Father Shreyas Rosen Mother Laquita Spears Sister 1 3 Alive 1 sister deceas ed of breast cancer Sister 2 Venita Danheiser Sister 3 Ursula Mae Social History Tobacco Use Types Packs/Day Years Used Date Smoking Tobacco: Never Cigarettes Smokeless Tobacco: Never Tobacco Cessation:Counseling Given: Not Answered Alcohol Use Standard Drinks/Week Comments No 0 (1 standard drink = 0.6 oz pur e alcohol) AUDIT-C Answer Date Recorded Q1: How often do you have a drink containing alcohol? Never 05/26/2024 Q2: How many drinks containi ng alcohol do you have on a typical day when you are drinking? Patient does not drink Q3: How often do you have si x or more drinks on one occasion? Never 05/26/2024 Personal Safety Answer Date Recorded Have you ever been in or are you currently in a harmful physical or emotional relationship or is someone making you feel afraid or unsafe? Denies 05/26/2024 Comments No Sex and Gender Information Value Date Recorded Sex Assigned at Not on file Legal Sex Female 2:22 AM SUPERVISOR ACCOUNTS RECEIVABLE Gender Identity Female 04/01/2024 8:18 AM CDT Sexual Orientation Not on file Obstetrics History Last Filed Vital Signs Vital Sign Reading Time Taken Comments Blood Pressure 123/66 09/07/2024 10:58 AM SUPERVISOR ACCOUNTS RECEIVABLE Pulse 111 09/07/2024 10:58 AM SUPERVISOR ACCOUNTS RECEIVABLE Temperature 36.5 C (97.7 F) 05/27/2024 8:17 AM CDT Respiratory Rate 16 05/27/2024 8:17 AM CDT Oxygen Saturation 97% 09/07/2024 10:58 AM SUPERVISOR ACCOUNTS RECEIVABLE Inhaled Oxygen Concentration - - Weight 72.2 kg (159 lb 3.2 oz) 09/07/2024 10:58 AM SUPERVISOR ACCOUNTS RECEIVABLE Height 165.1 cm (5' 5 ) 09/07/2024 10:58 AM SUPERVISOR ACCOUNTS RECEIVABLE Body Mass Index 26.49 09/07/2024 10:58 AM SUPERVISOR ACCOUNTS RECEIVABLE Plan of Treatment Health Maintenance Due Date Last Done Comments Breast Cancer Screening-Mammogram 1959 Colon Cancer Screening-Colonoscopy 1959 Depression Screening 1959 Hepatitis C Screening 1959 Osteoporosis Screening-Bone Density Scan 1959 DTaP/Tdap/Td Vaccine (1 - Tdap) 1970 Hepatitis B Screening 1977 Pneumococcal vaccine 65+ (1 of 1 - PCV) 2009 Zoster Vaccine (2 of 3) 10/15/2017 08/20/2017, 07/31 Well Visit 65+ 2024 Covid-19 Vaccine (2 - 2023-2 5 season) 2024 11/24/2020 Influenza Vaccine (#1) 2024 , 08/20/2017, 07/31/2016, Additional history exists Fall Risk Assessment 05/27/2025 05/27/2024 Medical Devices Implanted Type Area Software Technician Device Identifier Shelf Expiration Date Model / Serial / Lot Medtronic Inc Colrain Icd Mri Surescan Df4 [id number] - [id number] - [id number] Implanted:Qty: 1 on 05/26/2024 by Manjeet Pina MD at [facility] ICD Left: Chest Wall Medtronic Inc 09/18/2025 [id number] / [id number] / [id number] Medtronic Inc Sprint Quattro Secure S 55cm Df-4 Tripolar Screw Defibrillator [id number] - [id number] - [id number] Implanted:Qty: 1 on 05/26/2024 by Manjeet Pina MD at [facility] Lead Right: Ventricle Medtronic Inc 02/24/2026 [id number] / [id number] / [id number] Medtronic Inc Capsurefix Novus 6.2fr 2mm 45cm Bipolar Screw In Implantable [id number] - [id number] - [id number] Implanted:Qty: 1 on 05/26/2024 by Manjeet Pina MD at [facility] Lead Right: Atria Medtronic Inc 02/09/2026 [id number] / [id number] V / [id number] Procedures Procedure Name Priority Date/Time Associated Diagnosis Comments DEVICE CHECK - REMOTE Routine 09/26/2024 10:00 PM SUPERVISOR ACCOUNTS RECEIVABLE from Last 3 Months Results * DEVICE CHECK - REMOTE (09/26/2024 10:00 PM SUPERVISOR ACCOUNTS RECEIVABLE) Anatomical Region Laterality Modality Other 09/26/2024 10:0 0 PM SUPERVISOR ACCOUNTS RECEIVABLE Narrative 10/01/2024 2:09 PM SUPERVISOR ACCOUNTS RECEIVABLE Interpretation Summary: Battery and Leads (BL) Normal parameters noted on battery and lead(s) --- 12.6 yrs remaining longevity. Lead impedance, sensing, and threshold trends stable and appropriate. No short V-V intervals. Presenting Rhythm (CO) Atrial Sensing-Ventricular Sensing (-VS) --- /VS (SR) 72 to 83 bpm. Arrhythmic events (AE) No new arrhythmic events in monitoring period --- Since 09/07/24: No AHR or VHR episodes. Anticoagulation (AC) Anticoagulation is not clinically indicated Patient is not on anticoagulant therapy Transmission Information (TI) Device Summary Report Follow Up (FU) Patient's primary treating physician will be apprised of findings Procedure Note Manjeet Pina MD - 10/01/2024 Interpretation Summary: Battery and Leads (BL) Normal parameters noted on battery and lead(s) --- 12.6 yrs remaininglongevity. Lead impedance, sensing, and threshold trends stable andappropriate. No short V-V intervals. Presenting Rhythm (CO) Atrial Sensing-Ventricular Sensing (-VS) --- /VS (SR) 72 to 83bpm. Arrhythmic events (AE) No new arrhythmic events in monitoring period --- Since 09/07/24: No AHRor VHR episodes. Anticoagulation (AC) Anticoagulation is not clinically indicated Patient is not on anticoagulant therapy Transmission Information (TI) Device Summary Report Follow Up (FU) Patient's primary treating physician will be apprised of findings Manjeet Pina MD [facility] PRO CEDURES Final Result from Last 3 [place] [address] [facility] CHOICE PLUS Advance Directives For more information, please contact: [phone] * Full Code (Latest Code Status on File) Date Activated Date Inactivated Comments 05/26/2024 10:58 AM 05/27/2024 4:00 PM Care Teams Nursing Agency Manager Relationship Specialty Start Date End Date Mariano Sadler DO PCP - General 12/26/11 Elmira Burrell NP [address] [place] [id number] Nurse Practitioner Medical Oncology 03/28/23
--- OUTSIDE RECORDS SUMMARY | 2024-12-07 15:39 | XMS_ITS | Encounter Summary ---
Author Organization [employer] Address [address] [place] [address] Care Team Providers Care Senior Sharepoint Developer Name Role Phone Al Castro MD Primary Care Provider [phone] Encounter Details Date Type Department Care Team (Late st Contact Info) Description 12/01/2002 Outpatient Historical [facility] Manjula Araya MD [address] [facility] [address] [address] COMPLIC NERVOUS SYSTM DEVICE (Primary Dx) Social History Tobacco Use Types Packs/Day Years Used Date Smoking Tobacco: Never Assessed Comments Unknown Sex and Gender Information Value Date Recorded Sex Assigned at Not on file Legal Sex Female 4:57 AM DIAGNOSTICS SALES DEVELOPER Gender Identity Not on file Sexual Orientation Not on file documented as of this encounter Plan of Treatment Not on file documented as of this encounter Visit Diagnoses Diagnosis Other complications due to nervous system device, implant, and graft- Primary documented in this encounter Care Teams Senior Sharepoint Developer Relationship Specialty Start Date End Date Al Castro MD [address] [place] [address] PCP - General 12/01/02 documented as of this encounter
--- OUTSIDE RECORDS SUMMARY | 2024-12-07 15:39 | XMS_ITS | Encounter Summary ---
Author Organization [employer] Address [address] [place] [address] Care Team Providers Care Notched Blade Loader Name Role Phone Al Castro MD Primary Care Provider [phone] Encounter Details Date Type Department Care Team (Late st Contact Info) Description 03/22/2003 Outpatient Historical [facility] Enzo Samuels MD [address] [place] [address] FOLLOW-UP EXAM NEC (Primary Dx) Social History Tobacco Use Types Packs/Day Years Used Date Smoking Tobacco: Never Assessed Comments Unknown Sex and Gender Information Value Date Recorded Sex Assigned at Not on file Legal Sex Female 4:57 AM WET PROCESS ASSISTANT HEAD MILLER Gender Identity Not on file Sexual Orientation Not on file documented as of this encounter Plan of Treatment Not on file documented as of this encounter Visit Diagnoses Diagnosis Other follow-up examination(V67.59)- Primary Other follow-up examination documented in this encounter Care Teams Notched Blade Loader Relationship Specialty Start Date End Date Al Castro MD [address] [place] [address] PCP - General 12/01/02 documented as of this encounter
--- OUTSIDE RECORDS SUMMARY | 2024-12-07 15:39 | XMS_ITS | Encounter Summary ---
Author Organization [facility] Care Team Providers Care Metal Tube Cutter Name Role Phone Mariano Sadler DO Primary Care Provider [phone] Zak Shaffer MD, Placido Unavailable + [phone] Zak Shaffer MD, Placido Unavailable + [phone] Elmira Burrell NP Unavailable [phone] Encounter Details Date Type Department Care Team (Latest Contact Info) Description 09/03/2017 Orders Only [facility] ProviderJaylyn MD [address] [place] [address] Social History Tobacco Use Types Packs/Day Years Used Date Smoking Tobacco: Never Alcohol Use Standard Drinks/Week Comments No 0 (1 standard drink = 0.6 oz pur e alcohol) Comments Unknown Sex and Gender Information Value Date Recorded Sex Assigned at Not on file Legal Sex Female 2:22 AM REGIONAL ACCOUNT EXECUTIVE Gender Identity Female 04/01/2024 8:18 AM CDT Sexual Orientation Not on file documented as of this encounter Plan of Treatment Not on file documented as of this encounter Procedures Procedure Name Priority Date/Time Associated Diagnosis Comments AUDIOLOGY RECORD 09/03/2017 12:0 0 AM REGIONAL ACCOUNT EXECUTIVE documented in this encounter Results * AUDIOLOGY RECORD (09/03/2017 12:00 AM REGIONAL ACCOUNT EXECUTIVE) Narrative 09/03/2017 12:00 AM REGIONAL ACCOUNT EXECUTIVE Ordered by an unspecified provider. 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
--- OUTSIDE RECORDS SUMMARY | 2024-12-07 15:39 | XMS_ITS | Referral Summary ---
Author Organization [facility] Address [address] [place] [address] Phone Care Team Providers Care Communications Scientist Name Role Phone Mariano Sadler DO Primary Care Provider [phone] Elmira Burrell METAL SHEET ROLLER OPERATOR Unavailable [phone] Encounters Date Type Department Care Team Description 12/02/2024 Orders Only [facility] Oncology [facility] [place] [address] David Harvey MD Iron deficiency anemia, unspecified iron deficiency anemia type (Primary Dx) 12/02/2024 Telephone [facility] Oncology [address] [place] [address] Jennifer Jones, [facility] 12/02/2024 Orders Only [facility] Oncology [address] [place] [address] [address] [place] [address] David Harvey MD Iron deficiency anemia, unspecified iron deficiency anemia type (Primary Dx) 09/26/2024 Orders Only [facility] Cardiology [address] [facility] [address] [place] [address] Manjeet Pina MD from Last 3 Months Allergies Active Allergy Reactions Criticality Noted Date [...] times a day with meals 60 tablet 03/09/20 25 Active Additional Information Patient taking [...] October 2005. Auditory vertigo 04/13/2012 Hypocalcemia 04/09/2012 Immunizations Immunization Administration Dates Next Due Influenza, Quadrivalent, Spl it, Preservative Free, Intramuscular 07/07/2020 Influenza, Unspecified 08/20/2017,2015,08/09/2014,09/21 Insightix (J&J) SARS-CoV-2 Vaccination 11/24/2020 ZOSTER LIVE 08/20/2017,07/31/2016 Social History Tobacco Use Types Packs/Day Years [...] on file Legal Sex Female 2:22 AM INSURANCE VERIFICATION SPECIALIST Gender Identity Female 04/01/2024 8:18 AM CDT Sexual Orientation Not on file Last Filed Vital Signs Vital Sign Reading Time Taken Comments Blood Pressure 123/66 09/07/2024 10:58 AM INSURANCE VERIFICATION SPECIALIST Pulse 111 09/07/2024 10:58 AM INSURANCE VERIFICATION SPECIALIST Temperature 36.5 C (97.7 F) 05/27/2024 8:17 AM CDT Respiratory Rate 16 05/27/2024 8:17 AM CDT Oxygen Saturation 97% 09/07/2024 10:58 AM INSURANCE VERIFICATION SPECIALIST Inhaled Oxygen Concentration - - Weight 72.2 kg (159 lb 3.2 oz) 09/07/2024 10:58 AM INSURANCE VERIFICATION SPECIALIST Height 165.1 cm (5' 5 ) 09/07/2024 10:58 AM INSURANCE VERIFICATION SPECIALIST Body Mass Index 26.49 09/07/2024 10:58 AM INSURANCE VERIFICATION SPECIALIST Plan of Treatment Not on file Medical Devices Implanted Type Area Digital X Ray Service Engineer Device Identifier Shelf Expiration Date Model / Serial / Lot Med[employer] Sterling Icd Mri Surescan Df4 [id number] - [id number] - [id number] Implanted:Qty: 1 on 05/26/2024 by Manjeet Pina MD at [facility] ICD Left: Chest Wall Med[employer] Inc 09/18/2025 [id number] / [id number] / [id number] S Medtronic Inc Sprint Quattro Secure S 55cm Df-4 Tripolar Screw Defibrillator [id number] - [id number] - [id number] Implanted:Qty: 1 on 05/26/2024 by Manjeet Pina MD at [facility] Lead Right: Ventricle Medtronic Inc 02/24/2026 [id number] / [id number] / [id number] V Medtronic Inc Capsurefix Novus 6.2fr 2mm 45cm Bipolar Screw In Implantable 5076-45 - [id number] - [id number] Implanted:Qty: 1 on 05/26/2024 by Manjeet Pina MD at [facility] Lead Right: Atria Medtronic Inc 02/09/2026 [id number] / [id number] / [id number] Procedures Procedure Name Priority Date/Time Associated Diagnosis Comments DEVICE CHECK - REMOTE Routine 09/26/2024 10:00 PM INSURANCE VERIFICATION SPECIALIST from Last 3 Months Results * DEVICE CHECK - REMOTE (09/26/2024 10:00 PM INSURANCE VERIFICATION SPECIALIST) Anatomical Region Laterality Modality Other 09/26/2024 10:0 0 PM INSURANCE VERIFICATION SPECIALIST Narrative 10/01/2024 2:09 PM INSURANCE VERIFICATION SPECIALIST Interpretation Summary: Battery and Leads (BL) Normal parameters noted on battery and lead(s) --- 12.6 yrs remaining longevity. Lead impedance, sensing, and threshold trends stable and appropriate. No short V-V intervals. Presenting Rhythm (OR) Atrial Sensing-Ventricular Sensing (-VS) --- /VS (SR) [...] andappropriate. No short V-V intervals. Presenting Rhythm (OR) Atrial Sensing-Ventricular Sensing (-VS) --- /VS (SR) [...] Final Result from Last 3 Months Insurance CHOICE PLUS CHOICE PLUS [place] [id number] Advance Directives For more information, please contact: [phone] * Full Code (Latest Code Status on File) Date Activated Date Inactivated Comments 05/26/2024 10:58 AM 05/27/2024 4:00 PM Care Teams Communications Scientist Relationship Specialty Start Date End Date Mariano Sadler DO PCP - General 12/26/11 Elmira Burrell NP [address] [place] [id number] Nurse Practitioner Medical Oncology 03/28/23
--- OUTSIDE RECORDS SUMMARY | 2024-12-07 15:39 | XMS_ITS | Encounter Summary ---
Author Organization [facility] Address [address] [place] [address] Care Team Providers Care District Sales Coordinator Name Role Phone Al Castro MD Primary Care Provider [phone] Encounter Details Date Type Department Care Team (Latest Contact Info) Description 12/30/2002 Inpatient Historical HIS PATIENT IN A BED Chloe Bernard MD [address] [place] [address] [place] [address] TIETZE'S DISEASE (Primary Dx) Social History Tobacco Use Types Packs/Day Years Used Date Smoking Tobacco: Never Assessed Comments Unknown Sex and Gender Information Value Date Recorded Sex Assigned at Not on file Legal Sex Female 4:57 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
--- OUTSIDE RECORDS SUMMARY | 2024-12-07 15:39 | XMS_ITS | Clinical Summary ---
Author Organization [facility] Address [address] [place] [address] Care Team Providers Care Medical Records Technician Name Role Phone Unavailable Primary Care Provider Unavailabl e Source Comments [facility],non-owned Affiliates and Associated Physician Practices is amultiple site organization consisting of ambulatory clinics and hospital sitesin [place], [place], [place] and [place]. This disclosure is being madepursuant to the Care Everywhere program and may not contain all information available regarding this patient. Last updated 18.[facility] [employer] Immunizations Name Administration Dates Next Due INFLUENZA VACCINE, QUADR. (F LUZONE; FLULAVAL; FLUARIX; AFLURIA QUADRIVALENT; 6MO+), 0.5 ML (IIV4) 07/07/2020 Social History Tobacco Use Types Packs/Day Years Used Date Smoking Tobacco: Never Assessed Sex and Gender Information Value Date Recorded Sex Assigned at Not on file Gender Identity Not on file Sexual Orientation Not on file Plan of Treatment Health Maintenance Due Date Last Done Comments BONE DENSITY TESTING 1960 COLOGUARD (AGES 45-75) - COLON CA SCREENING 1959 COLON MONITORING 1959 COLONOSCOPY - COLON CA SCREENING 1959 CT COLONOGRAPHY - COLON CA SCREENING 1959 Colorectal Cancer Screening 1959 FIT - COLON CA SCREENING 1959 FLEX SIG - COLON CA SCREENING 1959 LIPID TESTING 1959 MAMMOGRAM 1959 PAP SMEAR 1959 HIV SCREENING 1974 HEPATITIS C SCREENING 04/17/1977 DTAP/TDAP/TD VACCINES (1 - Tdap) 1978 PNEUMOCOCCAL VACCINE 50+ (1 of 1 - PCV) 2009 ZOSTER VACCINE (1 of 2) 2009 COVID-19 VACCINE (2023-25 season) 2024 INFLUENZA VACCINE (#1) 2024 0, 08/20/2017, 07/31/2016, Additional history exists DEPRESSION SCREENING 09/22/2024 Respiratory Syncytial Virus (RSV) Vaccine Pt: or over 60 yrs (1 - 1-dose 75+ series) 2034 HEPATITIS B VACCINE Aged Out No longe r eligible based on patient's age to complete this topic HIB VACCINE Aged Out No longer eligi ble based on patient's age to complete this topic HPV VACCINE Aged Out No longer eligi ble based on patient's age to complete this topic MENINGOCOCCAL (Group B) VACCINE SHARED DECISION-MAKING Aged Out No longer eligible based on patient's age to complete this topic MENINGOCOCCAL GROUPS A/C/Y/W VACCINE Aged Out No longer eligible based on patient's age to complete this topic
--- OUTSIDE RECORDS SUMMARY | 2024-12-07 15:39 | XMS_ITS | Encounter Summary ---
Author Organization [facility] Address [address] [place] [address] Care Team Providers Care Duplicating Machine Mechanic Name Role Phone Al Castro MD Primary Care Provider Encounter Details Date Type Department Care Team (Late st Contact Info) Description 12/30/2002 Outpatient Historical [facility] Support Serv. (Adt Cardiology-[facility]) [address] 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
--- OUTSIDE RECORDS SUMMARY | 2024-12-07 15:39 | XMS_ITS | Clinical Summary ---
Author Organization [facility] Address [address] [place] [address] Phone Care Team Providers Care Oriental Rug Repairer Name Role Phone Al Castro MD Primary Care Provider [phone] Active Problems Problem Noted Date Diagnosed Date Iron deficiency anemia 10/05/2012 Overview (10/05/2012): Had gastric bypass surgery in 2001. Has seen Dr. Jodee Huang in our office between September and January of 2006. Ferritin in 07/2005 - 4.3. He was given IV iron dextran in 09/2005. Ferritin - 234 in October 2005. B12 deficiency anemia 10/05/2012 Overview (10/05/2012): Had gastric bypass surgery in 2001 and was on B12 injections for some time. She was seen by Dr. Jodee Huang and in early 2005 and was restarted on B12 injections. Social History Tobacco Use Types Packs/Day Years Used Date Smoking Tobacco: Never Assessed Comments Unknown Sex and Gender Information Value Date Recorded Sex Assigned at Not on file Legal Sex Female 4:57 AM BACKFILLER Gender Identity Not on file Sexual Orientation Not on file Plan of Treatment Health Maintenance Due Date Last Done Comments DTAP/TDAP/TD VACCINES (1 - Tdap) 1978 BREAST CANCER SCREENING 1999 COLORECTAL SCREENING 2004 Colorectal Cancer Screening 2004 FIT-DNA Q 3 years 2004 FIT/FOBT Q 1 year 2004 Flex Sig/CT Colonography Q 5 years 2004 PNEUMOCOCCAL VACCINE 50+ YEARS (1 of 1 - PCV) 04/22/20 09 ZOSTER VACCINE (1 of 2) 2009 INFLUENZA VACCINE (#1) 2024 OSTEOPOROSIS SCREENING 2024 RSV VACCINE (60+ or ) (1 - 1-dose 75+ series) 2034 Care Teams Oriental Rug Repairer Relationship Specialty Start Date End Date Al Castro MD [address] [place] [address] PCP - General 12/01/02
--- OUTSIDE RECORDS SUMMARY | 2024-12-07 15:39 | XMS_ITS | Encounter Summary ---
Author Organization [facility] Address [address] [place] [address] Care Team Providers Care Evaporative Cooler Installer Name Role Phone Al Castro MD Primary Care Provider [phone] Encounter Details Date Type Department Care Team (Late st Contact Info) Description 12/31/2002 Outpatient Historical [facility] Support [facility] ([facility] Cardiology[facility]) [address] 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
== END 2024-12-07 13:55 | disposition home or self-care (01) ==
PROVIDERS: PCP Nurse Practitioner; Visit Provider Nurse Practitioner
DX: Z12.31 Encounter for screening mammogram for malignant neoplasm of breast (principal); Z78.0 Asymptomatic menopausal state; M81.0 Age-related osteoporosis without current pathological fracture
CPT/HCPCS: 77063; 77067; 77080